=== PATIENT | male | born 1995 | race Caucasian/White ===

== ENCOUNTER → 2021-04-19 12:33 | Outpatient (CLI) | payer OTHER, SELFPAY ==
--- NOTE | 2021-04-19 12:42 | FL_ITS ---
PROCEDURE: FL BARIUM SWALLOW MODIFIED CLINICAL INDICATION: OROPHARYNGEAL DYSPHAGIA COMPARISON: No exams were available for comparison FINDINGS: No penetration or aspiration was noted during the modified barium swallow performed by the speech pathologist. IMPRESSION: No penetration or aspiration. Dictated by: Marilyn Howard MD 04/19/2021 17:38 Marilyn Howard MD in [place] 04/19/2021 17:38
--- NOTE | 2021-04-19 13:34 | HMH.SLMBS2 ---
Speech & Language Evaluation Speech/Language Mod Barium Swallow Start: 04/19/21 13:27 Freq: once Status: Complete Protocol: Document 04/19/21 13:27 TIA (Rec: 04/19/21 13:34 TIA [id number]) General Information General Current Food Consistancy Regular,Thin Liquids Dentition Good Dentition Oxygen Status Room Air Facial Symmetry Symmetrical Patient Orientation Person,Place,Time,Situation Ability to Follow Directions Excellent Communication Ability No Impairment MBS Recommendations Diet Dietary Recommendations Regular,Thin Liquids Treatment/Strategies Strategy/Precaution Recommend Sitting Upright (90 deg),Small Bites and Sips,Alternate Liquids/Solids Referrals/Other Recommended Referrals GI Consult Mod Barium Swallow Impressions Summary and Impressions Oral Phase Impression No Impairment (WFL) Oral Phase Summary Mr. Fatima was given the following consistencies: thins via straw and open cup, pudding, pureed, mechanical soft, regular, and pill with thin wash. No oral phase impairments were noted during the evaluation. Pharyngeal Phase Impression No Impairment (WFL) Pharyngeal Phase Summary No pharyngeal phase impairments noted. However, it was noted that the bolus rate of movement slowed with pudding, pureed, mechanical soft, and regular. It is recommended that Mr. Fatima be referred for an esoophagram and a GI consult. Speech/Language MBS Assessment/Goals/Plan Assessment Date of Evaluation: 04/19/21 Evaluation Type Initial Certification Assessment/Problems Dysphagia Does Patient Qualify for Service No Qualify/Failure Comment No overt signs and symptoms of dysphagia were noted. Recommendations PHYSICIAN CERTIFICATION: The specified therapy services are required, authorized, and reviewed every 30 days. Diet Recommendations Normal Liquid Type Recommendations Normal/Thin Plan Pt/Guardian verbally ack understanding Yes of dx/prognosis/goals G -code Required No Mod Barium Swallow Setup Exam Setup Radiologist Silvio Bailey Level of Consciousness Awake,Alert,Appropriate, Follows Commands Position (degrees) 90 Mod Bariu
== END ==
PROVIDERS: PCP Family Medicine; Visit Provider Family Medicine
DX: R13.12 Dysphagia, oropharyngeal phase (principal)
CPT/HCPCS: 70371; 92611

== ENCOUNTER → 2023-03-20 17:26 | Outpatient (CLI) | payer OTHER, SELFPAY ==
[2023-03-20 17:57] LABS: Basophils % 0.6 % (0.1-2.0); Eosinophils # 0.2 K/mm3 (0.0-0.4); Eosinophils % 2.2 % (0.1-12.0); Hematocrit 44.3 % (42.0-52.0); Hemoglobin 14.3 g/dL (14.1-18.0); Lymphocytes # 2.2 K/mm3 (0.7-4.5); Lymphocytes % 27.4 % (10-50); Mean Corpuscular HGB Conc 32.4 g/dL (31.8-35.4); Mean Corpuscular Hemoglobin 28.8 pg (27.0-31.2); Mean Corpuscular Volume 89.1 fl (80-94); Mean Platelet Volume 7.3 fl (7.4-10.4); Monocytes # 0.5 K/mm3 (0.1-1.0); Monocytes % 6.3 % (1.7-9.3); Neutrophils % 63.5 % (37.0-80.0); Platelet Count 380 K/mm3 (142-424); Red Blood Count 4.98 M/mm3 (4.60-6.20); Red Cell Distribution Width 13.2 % (11.5-17.5); White Blood Count 7.9 K/mm3 (4.8-10.8)
[2023-03-20 18:21] LABS: Chloride 105 mmol/L (98-107); Potassium 4.4 mmoL/L (3.5-5.1); Sodium 141 mmol/L (136-145)
[2023-03-20 18:24] LABS: Anion Gap 13.4 mEq/L (5-15); Blood Urea Nitrogen 18 mg/dl (9-20); Calcium 8.8 mg/dl (8.4-10.2); Carbon Dioxide 27 mmol/L (22.0-30.0); Estimated Glomerular Filt Rate 90 ml/min (>60); GFR (African American) 108 ML/MIN (>60); Glucose 98 mg/dl (74-100)
== END ==
PROVIDERS: PCP Surgery; Visit Provider Surgery
DX: Z30.2 Encounter for sterilization (principal)
CPT/HCPCS: 36415; 80048; 85025

== ENCOUNTER 2023-03-23 09:52 | Day surgery (SDC) | payer OTHER, SELFPAY ==
[2023-03-20 12:44] VITALS: BMI 27.4
[2023-03-23] VITALS (11 sets, daily range): BP systolic 120–144; BP diastolic 65–86; PULSE 75–107; RESP 16–20; TEMP 36.1–36.6; O2SAT 96–100
--- NOTE | 2023-03-23 10:32 | P.PNANES_ITS ---
[facility] Disclaimer: The information contained in this section may have been updated after the patient was seen, as this information can be updated by other users. Medical History No significant past medical history Surgical History History of appendectomy History of laparoscopic cholecystectomy Family History Other No significant family history Social History Smoking Status: Never smoker alcohol intake: never substance use type: denies use current occupational status: employed Travel in the last 8 weeks: None [facility] Anesthesia Checklist Patient Identification Patient Identification: Arm Band Structural Data Admitted From: Home Planned Operative Procedure/s: Vasectomy Consent for Planned Operative Procedure(s) Verified: Yes Verified Documents: Surgical Consent and History and Physical NPO Status Verified Time NPO: 00:00 Additional verifications Anesthesia Reactions: No Hx Blood Transfusions: No Airway Assessment Mallampati Score:: Class II C-Spine Mobility Assessed: Yes TMJ Mobility Assessed: Yes Dentition: Good Dentition Neurological Assessment Level of Consciousness: Awake and Alert Anesthesia Plan Anesthesia Risk discussed: Yes Anesthesia Plan: Verified ASA Class: II Anesthesia Type: General
--- NOTE | 2023-03-23 12:55 | SUR.OPER ---
Family updated at this time per EZIO Stuart
--- NOTE | 2023-03-23 13:24 | EXP.OP.NOTE ---
Date of procedure: 03/23/23 Pre-op Diagnosis:: Desire for sterility Post-op Diagnosis:: Same Procedure performed:: Bilateral vasectomy Surgeon:: Johann Keating MD Anesthesia: local and LMA Estimated blood loss (mL): 15 Operative findings:: Tissue thickening around right vas deferens Operative note:: After informed consent was obtained the patient was taken to the operating room and placed in the supine position. General anesthesia with laryngeal mask airway was achieved. The entire groin region was prepped and draped in a sterile fashion. The left vas deferens was identified along the left mid lateral scrotal margin. After elevation the region was infiltrated with 1% lidocaine. A small transverse incision was made. The underlying tissue was dissected with a combination of sharp dissection, blunt dissection, and electrocautery. The vas deferens was carefully elevated and a 1 cm portion was transected. Each end was cauterized after being ligated with chromic suture. Attention was then turned to the right vas deferens. The right vas deferens was identified along the base of the penis. After infiltration local anesthetic and incision the vas deferens was carefully elevated. The vas deferens did not maintain its location within the clamp. Soft tissue swelling was noted (making identification at the site of incision difficult). The decision to proceed with a separate more inferior incision was made. The vas deferens was palpated. Careful elevation was completed. Transection revealed a focus of superficial skin injury to the posterior (backwall) region. A small section of scrotal skin was debrided. Further dissection and identification of the vas deferens was made through this larger site. Once elevated the vas deferens was transected and ligation was completed as done on the left. All skin margins were reapproximated with interrupted 4-0 Monocryl. Dressings were applied and the patient was transferred to recovery in stable condition. Condition: stable Disposition: PACU Specimens:: Bilateral vas deferens Complications:: No immediate
--- NOTE | 2023-03-23 13:45 | EXP.ANES.I ---
[facility] Anesthesia Record Part I Anesthesia Record I Intake, IV Amount: 1,800 Hydration: Adequate Estimated blood loss (mL): 25 Urine output (mL): 0 Blood Products used (#): none Blood Pressure: 135/74 SaO2: 98 Pulse Rate: 107 Airway Patency: Patent Respiratory Rate: 20 Temperature: 97.3 F Patient is:: Drowsy and Stable Stable to PACU at:: 13:34
--- NOTE | 2023-03-23 14:40 | SUR.PHASEII ---
Pts. very concerned after speaking with Dr. Keating about outcome of procedure. She states Dr. Keating explained there were alot of complications and he had to make 5 incisions. I discussed the procedure with her and gave her detailed instructions for aftercare. We also discussed signs and symptoms to report and to not hesitate to call or come in if concerns arise. Pt. and spouse both state they understand and deny any further questions. Pt. was given neosporin and extra 4x4s for home.
--- NOTE | 2023-03-23 15:10 | EXP.ANES.I ---
[facility] Anesthesia Record Part I Anesthesia Record I Intake, IV Amount: 1,100 Hydration: Adequate Estimated blood loss (mL): 15 Urine output (mL): 0 Blood Products used (#): none Blood Pressure: 138/84 SaO2: 96 Pulse Rate: 87 Airway Patency: Patent Respiratory Rate: 18 Temperature: 97 F Patient is:: Drowsy and Stable Stable to PACU at:: 14:55
--- NOTE | 2023-03-23 15:25 | P.PNANES_ITS ---
[facility] Anesthesia Record Part I Anesthesia Record I Intake, IV Amount: 1,800 Hydration: Adequate Estimated blood loss (mL): 25 Urine output (mL): 0 Blood Products used (#): none Blood Pressure: 135/74 SaO2: 98 Pulse Rate: 107 Airway Patency: Patent Respiratory Rate: 20 Temperature: 97.3 F Patient is:: Drowsy and Stable Stable to PACU at:: 13:34
--- NOTE | 2023-03-24 13:40 | P.PNANES_ITS ---
[facility] Anesthesia Record Part II Anesthesia Record Part II Discharge Time: 14:04 Destination: Surgical Day Care (OP Surgery) PACU nurse assessment reviewed?: Yes Patient Condition:: Good Anesthesia Complications:: None Swallowing reflex intact?: Yes Airway Patency: Patent Cyanosis?: No Blood Pressure: 129/65 SaO2: 98 Respiratory Rate: 19 Pulse Rate: 87 Temperature: 97.3 F Mental Status: Alert & Oriented Pain level:: 0 Nausea and/or vomitting:: None Intake, IV Amount: 0 Hydration: Adequate
[2023-03-24 13:41] VITALS: BP 129/65; PULSE 87; RESP 19; TEMP 36.3; O2SAT 98
== END 2023-03-23 14:45 | disposition home or self-care (01) ==
PROVIDERS: PCP Surgery; Visit Provider Surgery
PROC: (CPT 55250; principal; 2023-03-23 11:15)
DX: Z30.2 Encounter for sterilization (principal)
CPT/HCPCS: 55250; 96374; J2405

== ENCOUNTER → 2023-05-06 12:42 | Outpatient (CLI) | payer OTHER, SELFPAY ==
[2023-05-06 13:25] LABS: Semen Viscosity Stringy (Normal); Sperm Count 0 mil/mm3 (20-160)
== END ==
PROVIDERS: PCP Physician Assistant; Visit Provider Surgery
DX: Z30.09 Encounter for other general counseling and advice on contraception (principal)
CPT/HCPCS: 89320